=== PATIENT | female | born 1955 | race Caucasian/White ===

== ENCOUNTER → 2016-07-05 | Outpatient (CLI) | payer MEDICAID ==
[2016-07-05 11:54] LABS: Basophils % (A) 0 %; CH 28.5; CHCM 33.7; Eosinophils # (A) 0.1 k/uL (0-0.7); Eosinophils % (A) 2 %; HCT 36.9 % (34.0-46.0); HDW 2.92; HGB 12.4 gm/dL (11.4-16.0); Luc # (Auto) 0.17; Luc % (Auto) 3; Lymphocytes # (A) 1.7 k/uL (1.0-4.8); Lymphocytes % (A) 31 %; MCH 28.7 pg (25.0-35.0); MCHC 33.7 g/dL (31.0-37.0); MCV 85.2 fL (80.0-100.0); Mean Platelet Volume 8.1; Monocytes # (A) 0.3 k/uL (0-1.0); Monocytes % (A) 6 %; Neutrophils # (A) 3.1 k/uL (1.3-7.7); Neutrophils % (A) 58 %; RBC 4.33 m/uL (3.80-5.40); RDW 13.9 % (11.5-15.5); WBC 5.3 k/uL (3.8-10.6); WBC (Perox) 5.75
[2016-07-05 12:02] LABS: ALT 40 U/L (9-52); AST 27 U/L (14-36); Alkaline Phosphatase 75 U/L (38-126); Anion Gap 11 mmol/L; Blood Urea Nitrogen 25 mg/dL (7-17); Calcium 9.6 mg/dL (8.4-10.2); Carbon Dioxide 27 mmol/L (22-30); Chloride 106 mmol/L (98-107); Glucose 116 mg/dL (74-99); Non-African American GFR(MDRD) 56 (>60 ml/min/1.73 sqM); Potassium 4.8 mmol/L (3.5-5.1); Sodium 144 mmol/L (137-145); Total Bilirubin 0.4 mg/dL (0.2-1.3); Total Protein 6.8 g/dL (6.3-8.2)
[2016-07-05 12:12] LABS: Appearance,Urine Clear (Clear); Bilirubin,Urine Negative (Negative); Glucose,Urine (UA) Negative (Negative); Ketones,Urine Negative (Negative); Leukocyte Esterase,Urine Moderate (Negative); Mucus,Urine Rare /hpf; Nitrite,Urine Negative (Negative); Particle Count 1527; Protein,Urine Negative (Negative); Specific Gravity,Urine 1.014 (1.001-1.035); Squamous Epithelial Cell,Urine <1 /hpf (0-4); UA Billing (MACRO vs. MICRO) MICRO; Urobilinogen,Urine <2.0 mg/dL (<2.0); WBC,Urine 5 /hpf (0-5)
[2016-07-05 12:13] LABS: INR 0.9 (<1.1); Partial Thromboplastin Time 22.4 sec (22.0-30.0); Prothrombin Time 9.7 sec (9.0-12.0)
== END | disposition home or self-care (01) ==
LOC: LABPAT 11:15
PROVIDERS: ATTEND Orthopaedic Surgery Sports Medicine
DX: Z01.812 Encounter for preprocedural laboratory examination (principal)
CPT/HCPCS: 80053; 81001; 85025; 85610; 85730; 87070

== ENCOUNTER 2016-07-22 09:07 | Inpatient (IN) | payer MEDICAID ==
[2016-07-12 15:50] VITALS: BMI 30.6
[~2016-07-22 09:07] MED LIST: ACETAMINOPHEN TAB 500 MG TAB PO ONE; CLINDAMYCIN 900 MG in DEXTROSE 5% IN WATER 50 ML IVPB ONE; DEXAMETHASONE SOD PHOSPHATE 10 MG/ML 1 ML VIAL IV ONE; HYDROmorphone 1 MG/ML 1 ML SYRINGE IVP PRN; MELOXICAM 7.5 MG TAB PO ONE; MIDAZOLAM 2 MG/2 ML VIAL IV PRN; ONDANSETRON 4 MG/2 ML VIAL IVP ONE; TRANEXAMIC ACID 1,000 MG in SODIUM CHLORIDE 0.9% 100 ML IVPB ONE
[2016-07-22] MEDS: LACTATED RINGERS 1,000 ML IV SCH ×3 (10:13→15:31)
[2016-07-22] MEDS: VANCOMYCIN 1,000 MG in SODIUM CHLORIDE 0.9% 250 ML IVPB STA ×2 (10:34→11:26)
[2016-07-22] MEDS ORDERED: LIDOCAINE 1% INJ 10MG/ML (20 ML MDV) ONE (11:27)
[2016-07-22] MEDS ORDERED: PHENYLEPHRINE-0.9% NACL SYG 1 MG/10 ML SYRINGE ONE (11:27)
[2016-07-22] MEDS ORDERED: MORPHINE SULFATE (PF) 0.3 MG/0.3 ML SYR ONE (11:27)
[2016-07-22] MEDS ORDERED: ONDANSETRON 4 MG/2 ML VIAL ONE (11:27)
[2016-07-22] MEDS ORDERED: SODIUM CHLORIDE 0.9% 100 ML BAG ONE (11:27)
[2016-07-22] MEDS ORDERED: MIDAZOLAM 2 MG/2 ML VIAL ONE (11:27)
[2016-07-22] MEDS ORDERED: PROPOFOL 10 MG/ML 20 ML VIAL IV ONE (11:27)
[2016-07-22] MEDS ORDERED: TRANEXAMIC ACID 1,000 MG/10 ML VIAL ONE (11:27)
[2016-07-22] MEDS: ROPIVACAINE 246.25 MG, EPINEPHrine 0.5 MG, KETOROLAC 30 MG, cloNIDine HCL/PF 80 MCG, WA... MISCELLANE ONE ×10 (12:07→12:40)
[2016-07-22] MEDS ORDERED: DIAZEPAM 5 MG TAB PO PRN (13:21)
[2016-07-22] MEDS ORDERED: MAGNESIUM HYDROXIDE 2,400 MG/10 ML CUP PO PRN (13:21)
[2016-07-22] MEDS ORDERED: TEMAZEPAM 15 MG CAP PO PRN (13:21)
[2016-07-22] MEDS ORDERED: BISACODYL 10 MG SUPP RECTAL PRN (13:21)
[2016-07-22] MEDS ORDERED: HYDROmorphone 1 MG/ML 1 ML SYRINGE IVP PRN ×3 (13:21)
[2016-07-22] MEDS ORDERED: NALOXONE 0.4 MG/ML 1 ML VIAL IV PRN ×2 (13:21→14:09)
[2016-07-22] MEDS ORDERED: traMADol 50 MG TAB PO PRN (13:21)
[2016-07-22] MEDS ORDERED: HYDROcodone/APAP 7.5-325MG 1 EACH TAB PO PRN (13:21)
[2016-07-22] MEDS ORDERED: ACETAMINOPHEN TAB 325 MG TAB PO PRN (13:21)
[2016-07-22] MEDS ORDERED: ONDANSETRON 4 MG/2 ML VIAL IVP PRN (13:21)
[2016-07-22] MEDS ORDERED: hydrOXYzine PAMOATE 25 MG CAP PO PRN (13:21)
[2016-07-22] MEDS ORDERED: NA PHOS,M-B/NA PHOS,DI-BA 133 ML ENEMA RECTAL PRN (13:21)
--- NOTE | 2016-07-22 13:57 | XR ---
EXAMINATION TYPE: XR knee limited RT DATE OF EXAM: 07/22/2016 1:48 PM COMPARISON: NONE HISTORY: Post knee replacement TECHNIQUE: 2 views right knee FINDINGS: Right knee prosthesis is present with tibial femoral components. No acute fractures are ziggy dent. Postsurgical changes are evident. IMPRESSION: 1. No acute fractures post knee replacement.
[2016-07-22] MEDS ORDERED: diphenhydrAMINE 50 MG/ML 1 ML VIAL IVP PRN (14:09)
[2016-07-22] MEDS ORDERED: PROMETHAZINE INJ 6.25 MG in SODIUM CHLORIDE 0.9% 50 ML IVPB PRN (14:09)
[2016-07-22] MEDS ORDERED: MORPHINE SULFATE 4 MG/ML SYRINGE IVP PRN ×2 (14:09→19:52)
[2016-07-22] MEDS: NALBUPHINE 10 MG/ML AMPUL IV PRN ×2 (15:29→21:06)
[2016-07-22] MEDS ORDERED: SENNOSIDES-DOCUSATE SODIUM 1 EACH TAB PO SCH (21:00)
[2016-07-22] MEDS ORDERED: MONTELUKAST 10 MG TAB PO SCH (21:00)
[2016-07-22] MEDS: ASPIRIN 325 MG TAB PO SCH (21:09)
--- NOTE | 2016-07-22 22:15 | OP ---
DATE OF SERVICE: 07/22/2016 SURGEON: BRANDI OROZCO MD CAR PRE COOLER: Dany Dennis PA-C. PREOPERATIVE DIAGNOSIS: Right knee osteoarthrosis. POSTOPERATIVE DIAGNOSIS: Right knee osteoarthrosis. OPERATION: Right total knee arthroplasty. ANESTHESIA: Spinal with sedation. ESTIMATED BLOOD LOSS: 100 mL. SPECIMENS REMOVED: COMPLICATIONS: None apparent. OPERATIVE FINDINGS: TOURNIQUET TIME: 46 minutes at 250 mmHg. DRAINS: None. DISPOSITION: Postanesthesia care unit. INDICATIONS: Ambreen is a very pleasant 61-year-old female, has a long-standing history of right knee pain. History and physical examination are consistent with advanced right knee osteoarthrosis. She has been through significant nonoperative management up to this point. Further treatment options were discussed and she has decided to go forward with a right total knee arthroplasty. Risks of the procedure were discussed with her in detail. These risks include, but were not limited to risk of infection, nerve damage, bleeding, pain. There is a small risk of deep venous thrombosis which could lead to fatal pulmonary embolism. There is also risk of loosening of the implant which could require revision operation. The patient understands these risks. All of her questions were answered to her satisfaction. An appropriate informed consent was obtained. DESCRIPTION OF PROCEDURE: The patient was identified in the preoperative holding area. Surgical site was marked by both the patient and myself. She was given 1 g of vancomycin IV for prophylactic purposes. She was then transferred to the operative suite, where she was placed supine on the operating table. A spinal anesthetic was then administered and dosed by the anesthesia department without apparent complication. An examination under anesthesia was then performed. The patient was just 2 to 3 degrees shy of full extension. She had 100 degrees of flexion and the medial collateral ligament, lateral collateral ligament, and posterior cruciate ligaments were stable. Tourniquet was then placed high on the right upper thigh, well-padded in preparation for surgery. The patient's right lower extremity was then prepped and draped in the usual sterile fashion. A standard surgical pause was then undertaken to ensure that we were operating on the correct site and that appropriate preoperative antibiotics had been given. All staff in the room were in agreement and we proceeded. The outlines of the patella were then marked with a surgical pen. A planned 10 to 12 cm vertical incision centered over the patella was marked with a surgical pen. The leg was then exsanguinated with an Esmarch dressing. The knee was then flexed and the tourniquet was inflated to 250 mmHg. The total tourniquet time for the procedure was 46 minutes. Incision was then made with a 10 blade scalpel. Dissection was carried down sharply to the overlying fascia. Great care was taken to minimize the skin flaps. The knee was then exposed using a standard medial parapatellar approach. A small cuff of quadriceps tendon was then left for suturing. She was in a bit of varus preoperatively. A standard medial release was then made. The superficial medial collateral ligament was dissected off the bone around to the posterior aspect of the proximal tibia. The medial meniscus was then excised as well. The lateral meniscus was also released anteriorly. The leg was then externally rotated. The patella was everted and the knee was flexed. The retractors were then placed to protect the collateral ligaments. I then proceeded to remove the infrapatellar fat pad. This was excised sharply tangentially with the fibers of the patellar tendon. I then proceeded to remove the peripheral osteophytes. This was done with a rongeur. I then proceeded with the distal femoral resection. She did have near full extension. A planned 9 mm resection was then done. The femoral canal was then entered in the midline of the femur approximately 10 mm anterior to the origin of the posterior cruciate ligament. The shiv was then advanced down the center of the femur and placed intramedullary. Based on preoperative radiographs, the angle between the anatomic and mechanical axis of the femur was approximately 4 to 5 degrees. The valgus angle of the distal femoral cutting guide was then set at 4 degrees for the right knee. The distal femoral cutting guide was then advanced over the intramedullary shiv. This was seated firmly against the femur. I then, as mentioned, planned to take 9 mm off the distal femur. The cutting block was then secured onto the femur with pins. The jig was then removed and the distal femoral cut was made through the slot of the block. The pins were then removed and the distal femoral cutting block was removed. The accuracy of the distal femoral cuts was checked with 2 flat bars. I then proceeded with femoral sizing. Posterior referencing sizing guide was held firmly against the resected distal surface of the femur. Posterior condyles were resting on the posterior plane of the guide. The sizing stylus was then placed onto the anterior femur. The size was measured at a size 6. I then assessed for femoral rotation. The plan was for 3 degrees of external rotation. Three degrees of external rotation was placed onto the jig. The holes were then marked. I then confirmed the rotation by 3 separate methods. This was done using the epicondylar axis as well as Whitesides line and posterior referencing. It was deemed that the external rotation was proper. I then went forward with placing the femoral cutting block. This was then placed over the previously placed pinholes. The nikhil wing was then placed onto the anterior slots to ensure that we would not notch the anterior femur with the anterior femoral cut. I then proceeded with the anterior femoral cut. This was flush with the anterior cortex of femur. Posterior cuts were then made followed by the anterior chamfer cut and then the posterior chamfer cut. The cutting block was then removed. Throughout the resection, the collateral ligaments were protected with retractors. I then placed a trial size 6 femur. It was slightly wide medial to lateral and fit flush with the distal end of the femur. I made a decision to go with a 6 narrow. The drill holes were then made. I then proceeded with the tibial cut. I planned for a cruciate-retaining knee. The guide was then placed and set for varus, valgus and for slope. The height was set for an approximate 2 mm resection from the medial tibial plateau, which was the lower side. I was happy with the alignment and the amount of resection. The cutting block was then pinned to the proximal tibia. The alignment shiv was removed and the proximal tibia was resected with the reciprocating saw. Again, this was done with retractors, protecting the collateral ligaments as well as posterior cruciate ligament. I then proceeded to evaluate the flexion and extension gaps. A 10 mm block was then placed. The flexion-extension gaps were equal. I then proceeded with resection of the posterior osteophytes. She had very minimal posterior osteophytes. This was done using a curved osteotome. This resected the posterior osteophytes and the posterior capsule stripping was also done off the posterior aspect of the femur. The osteophytes were removed. I then proceeded with resection of the patella. The thickness of the patella was measured using the caliper. The thickness was 22 mm. The thickness of the anticipated patellar dome was taken into account. Resection was then performed and confirmed to be equal in 4 quadrants using a caliper. Approximately 14 mm of bone remained after the resection. A 29 x 8 standard patellar trial was then placed. The holes were then drilled and the trial was then placed. I then proceeded with sizing the tibial plate. A size D tibial plate fit very nicely. I placed a trial femur, tibial tray and patellar button. A 10 mm trial tibial insert was also placed. The components fit very nicely. She had full extension and flexion. The extension and flexion gaps were equal and stable to both varus and valgus stress. The patella tracked appropriately. The tibial tray rotation was marked with a Bovie. This was externally rotated properly. I then proceeded with tibial preparation. I first drilled the femoral holes and removed femoral component. The tibial tray was then set for proper external rotation as well as mediolateral placement onto the tibia. It was then pinned into place. I then proceeded with punching the keel. I then decided to proceed with cementing of all of our components. The knee was thoroughly irrigated with sterile saline solution via pulse lavage. The lateral genicular artery was identified and cauterized. All blood was removed from the bone of the tibia, femur and patella with pulse lavage. I then proceed with cementing. Two packs of antibiotic bone cement were prepared on the back table by the certified ophthalmic surgical assistant. I then proceeded with cementing of the tibia first. The cement was impacted in the keel as well as deeply seated into the bone. A second coat of cement was then placed. The tibia was then impacted into place. Excess cement was removed with Cushings and jokers. I then proceeded with cementing of the femoral component. The femoral component was also cemented using standard technique. Excess cement was removed. A 10 mm trial insert was then placed into the knee. It was brought into full extension with a constant axial load placed until the cement had hardened. The patellar component was then cemented. This was held firmly with a compressive device until the cement had dried. When the cement had dried, the knee was taken out of extension. All excess cement was removed from around the prosthesis. I then trialed the knee with a 10 mm insert. Flexion-extension gaps were appropriate. The knee was stable. It came into full extension. I decided to go forward with a 10 mm cross-linked cruciate-retaining tibial insert. Polyethylene was then placed onto the tray and locked. The knee was then reduced. The knee was then again further irrigated with sterile saline solution with antibiotic added. The tourniquet was then deflated. Total tourniquet time for the procedure was 46 minutes at 250 mmHg. Final components were Abby Persona size 6 narrow cruciate-retaining femoral component, a size D tibial tray, a 10 mm medial congruent cruciate-retaining polyethylene insert and a 29 x 8 patella. I then proceeded with closure. Again, the knee was thoroughly irrigated. The quadriceps tendon and the medial retinaculum were re-approximated with #2 Ethibond suture. The extensor mechanism was then closed with a running #2 Quill suture. Subcutaneous tissues were closed with 2-0 Vicryl interrupted suture. The skin was closed with a running 3-0 Quill suture. Dermabond was applied to the incision. Sterile compressive dressings were then applied. All sponge and needle counts were deemed correct prior to closure. The patient tolerated the procedure without apparent complication. She was transferred to the recovery room in stable condition.
[2016-07-22 22:56] VITALS: RESP 16
[2016-07-22] MEDS ORDERED: VANCOMYCIN 1,250 MG in SODIUM CHLORIDE 0.9% 250 ML IVPB ONE (23:00)
[2016-07-23] MEDS ORDERED: NALBUPHINE 10 MG/ML AMPUL ONE (02:30)
[2016-07-23] MEDS ORDERED: MORPHINE SULFATE 4 MG/ML SYRINGE ONE (02:30)
[2016-07-23] MEDS: LACTATED RINGERS 1,000 ML IV SCH ×2 (05:17→06:05)
[2016-07-23 07:13] LABS: Basophils % (A) 0 %; CH 28.5; CHCM 33.6; Eosinophils % (A) 0 %; HCT 33.4 % (34.0-46.0); HDW 2.91; HGB 11.2 gm/dL (11.4-16.0); Luc # (Auto) 0.12; Luc % (Auto) 1; Lymphocytes # (A) 1.5 k/uL (1.0-4.8); Lymphocytes % (A) 13 %; MCH 28.6 pg (25.0-35.0); MCHC 33.6 g/dL (31.0-37.0); MCV 85.1 fL (80.0-100.0); Mean Platelet Volume 6.9; Monocytes # (A) 0.5 k/uL (0-1.0); Monocytes % (A) 4 %; Neutrophils # (A) 9.1 k/uL (1.3-7.7); Neutrophils % (A) 81 %; RBC 3.93 m/uL (3.80-5.40); RDW 13.9 % (11.5-15.5); WBC 11.2 k/uL (3.8-10.6); WBC (Perox) 11.81
[2016-07-23 07:24] LABS: ALT 37 U/L (9-52); AST 29 U/L (14-36); Alkaline Phosphatase 71 U/L (38-126); Anion Gap 9 mmol/L; Blood Urea Nitrogen 17 mg/dL (7-17); Calcium 9.2 mg/dL (8.4-10.2); Carbon Dioxide 26 mmol/L (22-30); Chloride 103 mmol/L (98-107); Glucose 104 mg/dL (74-99); Non-African American GFR(MDRD) >60 (>60 ml/min/1.73 sqM); Potassium 5.2 mmol/L (3.5-5.1); Sodium 138 mmol/L (137-145); Total Bilirubin 0.5 mg/dL (0.2-1.3); Total Protein 6.3 g/dL (6.3-8.2)
[2016-07-23] MEDS ORDERED: SYMBICORT 160-4.5 MCG INHALER INHALATION SCH (08:00)
[2016-07-23] MEDS: HYDROcodone/APAP 7.5-325MG 1 EACH TAB PO PRN ×2 (08:16→14:03)
[2016-07-23] MEDS ORDERED: ESCITALOPRAM 20 MG TAB PO SCH (09:00)
--- NOTE | 2016-07-23 09:47 | P.CONS ---
History of Present Illness - Reason for Consult Consult date: 07/23/16 Medical management Requesting physician: Diego Malik - Chief Complaint Status post right total knee arthroplasty - History of Present Illness This is a 61-year-old female, patient of Dr. Burgos. 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 Surgery was completed in 1990. She's had no further seizures since that time. Patient is been suffering with right knee pain and osteoarthritis of the right knee. She underwent a right total knee arthroplasty yesterday with Dr. Malik. Patient tolerated surgery well with no complications. She had an estimated blood loss 100 MLS. We have been consulted for medical management. Patient denies any chest pain, shortness of breath, nausea or vomiting. Denies any bowel movement changes or urinary symptoms. She has been up and ambulating to the bathroom. Pain is tolerable. She was found have a potassium of 5.2. She's been eating more bananas lately at home. She did eat a banana this morning with breakfast. We' ll repeat a potassium level. If elevated patient will require Kayexalate. Review of Systems Please refer to HPI otherwise unremarkable Past Medical History Past Medical History: Asthma, Hypertension Additional Past Medical History / Comment(s): hx of seizure post brain sx for AVM, NO MRI'S HAS CLIPS IN BRAIN History of Any Multi-Drug Resistant Organisms: None Reported Past Surgical History: Section, Cholecystectomy, Orthopedic Surgery, Tubal Ligation Additional Past Surgical History / Comment(s): RT KNEE MENISCUS TEAR, BRAIN SX FOR AVM AT [facility] 20 YRS AGO Past Anesthesia/Blood Transfusion Reactions: Postoperative Nausea & Vomiting ( PONV) Past Psychological History: Depression, Panic Disorder Smoking Status: Never smoker Past Alcohol Use History: None Reported Past Drug Use History: None Reported - Past Family History Mother Family Medical History: Cancer Additional Family Medical History / Comment(s): THROAT Father Family Medical History: Cancer Additional Family Medical History / Comment(s): LUNG, PANCREAS Medications and Allergies Home Medications Medication Instructions Recorded Confirmed Type Cholecalciferol [Vitamin D3] 1,000 unit PO DAILY 07/12/16 07/22/16 History Escitalopram [Lexapro] 20 mg PO DAILY 07/12/16 07/22/16 History Glucosamine Sulfate 500 mg PO DAILY 07/12/16 07/22/16 History Losartan [Cozaar] 50 mg PO QAM 07/12/16 07/22/16 History Meloxicam [Mobic] 7.5 mg PO DAILY 07/12/16 07/22/16 History Montelukast [Singulair] 10 mg PO HS 07/12/16 07/22/16 History Vitamin B-12 1 tab PO DAILY 07/12/16 07/22/16 History Budesonide/Formoterol Fumarate 2 puff INHALATION RT-DAILY 07/22/16 07/22/16 History [Symbicort 160-4.5 Mcg Inhaler] Allergies Allergy/AdvReac Type Severity Reaction Status Date / Time latex Allergy Reddness Verified 07/22/16 09:40 Penicillins Allergy Dyspnea/figueroa Verified 07/22/16 09:40 h Physical Exam Vitals: Vital Signs Temp Pulse Resp BP Pulse Ox 07/23/16 03:00 96 07/23/16 01:53 97.7 F 71 16 123/59 96 07/22/16 23:00 96 07/22/16 21:00 98.6 F 88 16 112/69 94 L 07/22/16 16:30 93 133/76 07/22/16 16:15 73 120/69 07/22/16 16:00 84 123/66 07/22/16 15:45 84 128/70 07/22/16 15:30 85 118/72 07/22/16 15:15 81 122/70 07/22/16 15:00 80 133/72 07/22/16 14:45 85 114/70 07/22/16 14:30 98.1 F 80 17 120/95 99 07/22/16 14:00 75 16 103/55 97 07/22/16 13:45 78 16 114/58 98 07/22/16 13:30 81 16 103/51 94 L 07/22/16 13:20 97.8 F 82 16 113/58 98 07/22/16 09:41 97.9 F 79 16 140/65 96 Intake and Output 07/22/16 07/23/16 07/23/16 22:59 06:59 14:59 Intake Total 860 1200 Output Total 1350 Balance 860 -150 Intake: IV 1200 Lactated Ringers 1,000 ml 1200 @ 100 mls/hr IV .Q10H PAUL Rx#:[id number] Oral 860 Output: Urine 1350 Uretheral (Rendon) 1350 Other: Voiding Method Indwelling Catheter Head normocephalic Neck supple Lungs clear to auscultation bilaterally no wheezing or crackles Heart regular rate and rhythm S1-S2, no rub or gallop Abdomen is soft nontender nondistended positive bowel sounds no hepatosplenomegaly Extremities no edema. Right knee incision clean dry and intact. No evidence of cellulitis. Calf nontender. Neuro alert and orientated to 3 Results CBC & Chem 7: 07/23/16 06:56 07/23/16 06:56 Labs: Abnormal Lab Results - Last 24 Hours (Table) 07/23/16 07/23/16 Range/Units 06:56 06:56 WBC 11.2 H (3.8-10.6) k/uL Hgb 11.2 L (11.4-16.0) gm/dL Hct 33.4 L (34.0-46.0) % Neutrophils # 9.1 H (1.3-7.7) k/uL Potassium 5.2 H (3.5-5.1) mmol/L Glucose 104 H (74-99) mg/dL Assessment and Plan Plan: 1. Right knee osteoarthritis: Postop day #1 status post right total knee arthroplasty. Continue with current pain control. Patient is on full aspirin twice a day for DVT prophylaxis. 2. Hyperkalemia: Repeat potassium level. If remains elevated will give Kayexalate. 3. Leukocytosis: White count 11.2. Likely reactive from surgery. No evidence of cellulitis at the knee. 4. Essential hypertension: Blood pressures are stable. Cozaar initially held due to lower blood pressures. Okay to resume Cozaar 5. History of asthma: Stable with no evidence of exacerbation. Continue with her Symbicort and Singulair 6. History of generalized anxiety disorder and panic disorder with depression. Continue Lexapro GI prophylaxis Pepcid Thank you for this consultation. We will continue to follow along with you. Time with Patient: Greater than 30 (Greater than 50% of the total time spent in counseling and coordination of care. I performed an examination of the patient and discussed their management with the physician Cafeteria Associate. I have reviewed the Physician Cafeteria Associate's notes and agree with the documented findings and plan of care)
[2016-07-23 09:48] VITALS: BP 116/59; PULSE 63; TEMP 98.4
[2016-07-23] MEDS ORDERED: FAMOTIDINE 20 MG TAB PO SCH (10:00)
--- NOTE | 2016-07-23 10:19 | P.PN ---
Progress Note - Text Date:07/23] Time:700 Patient is status post tkr. Patient seen this morning with VAS score of 4. c/o of pruritus, no c/o nausea/vomiting, comfortable and doing well.
--- NOTE | 2016-07-23 11:12 | P.DS ---
Providers Date of admission: 07/22/16 09:07 Expected date of discharge: 07/23/16 Attending physician: Diego Malik Consults: 07/22/16 13:21 Consult Physician Routine Consulting Provider: Petra Burgos Consult Reason/Comments: post op medical management Do you want consulting provider notified?: Yes Primary care physician: Petra Burgos - Discharge Diagnosis(es) (1) Osteoarthritis of right knee Patient was admitted to the OR on 07/22/2016 to undergo right total knee arthroplasty per Dr. Malik. She failed conservative measures as an outpatient and desired elected to proceed with surgical intervention after given informed consent. She underwent the above procedure which she tolerated well without complication. Her postoperative hospital course has remained without complication. On day of discharge diet desires discharge to home. She is afebrile, vital signs stable, labs within acceptable ranges, denying new complaints, tolerating by mouth meds and diet, pain controlled, voiding without difficulty, passing flatus, wound is benign, calf is soft and nontender, abdomen is soft and nontender, and neurovascular status is intact. Review of systems is negative for fever, chills, chest pain, shortness breath, nausea, vomiting, numbness, tingling, abdominal pain, calf pain, headaches, slurred speech or other. Current Visit: Yes Status: Acute Priority: Medium Procedures: Right total knee arthroplasty Patient Condition at Discharge: Good Plan - Discharge Summary New Discharge Prescriptions: Aspirin 325 mg PO BID #60 tab HYDROcodone/APAP 7.5-325MG [[place] 7.5-325] 1 - 2 each PO Q6HR PRN #90 tab PRN Reason: Pain Discharge Medication List Cholecalciferol [Vitamin D3] 1,000 unit PO DAILY 07/12/16 [History] Escitalopram [Lexapro] 20 mg PO DAILY 07/12/16 [History] Glucosamine Sulfate 500 mg PO DAILY 07/12/16 [History] Losartan [Cozaar] 50 mg PO QAM 07/12/16 [History] Meloxicam [Mobic] 7.5 mg PO DAILY 07/12/16 [History] Montelukast [Singulair] 10 mg PO HS 07/12/16 [History] Vitamin B-12 1 tab PO DAILY 07/12/16 [History] Budesonide/Formoterol Fumarate [Symbicort 160-4.5 Mcg Inhaler] 2 puff INHALATION RT-DAILY 07/22/16 [History] Aspirin 325 mg PO BID #60 tab 07/23/16 [Rx] HYDROcodone/APAP 7.5-325MG [[place] 7.5-325] 1 - 2 each PO Q6HR PRN #90 tab [Rx] Follow up Appointment(s)/Referral(s): Diego Malik MD [STAFF PHYSICIAN] - 2 Weeks Activity/Diet/Wound Care/Special Instructions: Keep wound clean and dry Take meds as directed Follow-up with Dr. Malik in office [phone] Weightbearing as tolerated Discharge Disposition: HOME WITH HOME HEALTH SERVICES
[2016-07-23] MEDS ORDERED: MULTIVITAMINS, THERA 1 EACH TAB PO SCH (12:00)
[2016-07-23] MEDS ORDERED: CHOLECALCIFEROL 1,000 UNIT TAB PO SCH (12:00)
[2016-07-23] MEDS: ASPIRIN 325 MG TAB PO SCH (12:16)
[2016-07-24] MEDS ORDERED: LOSARTAN 50 MG TAB PO SCH (09:00)
== END 2016-07-23 14:17 | disposition home health service (06) | DRG 470 ==
LOC: 2ORMAIN 09:07 → 3SUR 13:14
PROVIDERS: ADMIT Orthopaedic Surgery Sports Medicine; ATTEND Orthopaedic Surgery Sports Medicine
PROC: 0SRC0J9 Replacement of Right Knee Joint with Synthetic Substitute, Cemented, Open Approach (ICD-10-PCS; principal; 2016-07-22 11:00)
DX: M17.11 Unilateral primary osteoarthritis, right knee (principal); I10 Essential (primary) hypertension; F41.0 Panic disorder [episodic paroxysmal anxiety]; J45.909 Unspecified asthma, uncomplicated; Z88.0 Allergy status to penicillin; Z79.899 Other long term (current) drug therapy; Z91.040 Latex allergy status
CPT/HCPCS: 80053; 84132; 85025; 88300; 94640

== ENCOUNTER → 2018-10-21 | Outpatient (CLI) | payer MEDICARE, OTHER | END | disposition home or self-care (01) | LOC: LABPAT 09:11 | PROVIDERS: ATTEND Orthopaedic Surgery Sports Medicine | DX: Z01.812 Encounter for preprocedural laboratory examination (principal) | CPT/HCPCS: 87070 ==

== ENCOUNTER 2018-10-25 10:27 | Day surgery (SDC) | payer MEDICARE, OTHER ==
[~2018-10-25 10:27] MED LIST changes: -DEXAMETHASONE SOD PHOSPHATE 10 MG/ML 1 ML VIAL IV ONE; -HYDROmorphone 1 MG/ML 1 ML SYRINGE IVP PRN; +LIDOCAINE 1% 20 ML VIAL (10MG/ML) FOR IV START INTRADERMA PRN; +ROPIVACAINE 246.25 MG, EPINEPHrine 0.5 MG, KETOROLAC 30 MG, cloNIDine HCL/PF 80 MCG, WA... MISCELLANE ONE; +VANCOMYCIN 1,250 MG in SODIUM CHLORIDE 0.9% 250 ML IVPB ONE; +VANCOMYCIN IV PER PHARMACY 1 EACH MISC MISCELLANE PRN; +fentaNYL (PF) 50 MCG/ML 2 ML AMP IV PRN; +fentaNYL (PF) 50 MCG/ML 2 ML AMP IVP PRN
[2018-10-25] MEDS ORDERED: LACTATED RINGERS 1,000 ML IV ONE ×3 (11:01→14:20)
[2018-10-25] MEDS ORDERED: DEXAMETHASONE SOD PHOS (MDV) 100 MG/10 ML VIAL IVP ONE (11:02)
[2018-10-25] MEDS ORDERED: MORPHINE SULFATE 2 MG/ML SYRINGE IVP PRN (11:22)
[2018-10-25] MEDS ORDERED: NALOXONE 0.4 MG/ML 1 ML VIAL IV PRN ×2 (11:22→12:47)
[2018-10-25] MEDS ORDERED: SODIUM CHLORIDE 0.9% 100 ML BAG ONE (12:36)
[2018-10-25] MEDS ORDERED: MIDAZOLAM 2 MG/2 ML VIAL ONE (12:36)
[2018-10-25] MEDS ORDERED: MORPHINE SULFATE (PF) 0.3 MG/0.3 ML SYR ONE (12:36)
[2018-10-25] MEDS ORDERED: TRANEXAMIC ACID 1,000 MG/10 ML VIAL ONE (12:36)
[2018-10-25] MEDS ORDERED: fentaNYL (PF) 50 MCG/ML 2 ML AMP ONE (12:36)
[2018-10-25] MEDS ORDERED: diphenhydrAMINE 50 MG/ML 1 ML VIAL ONE (12:36)
[2018-10-25] MEDS ORDERED: ePHEDrine SULFATE/0.9% NACL/PF 50 MG/5 ML SYRINGE IV ONE (12:36)
[2018-10-25] MEDS ORDERED: ceFAZolin 3,000 MG in SODIUM CHLORIDE 0.9% IRRIGATIO 3,000 ML IRRIGATION ONE (12:38)
[2018-10-25] MEDS ORDERED: HYDROcodone/APAP 10-325MG 1 EACH TAB PO PRN (12:47)
[2018-10-25] MEDS ORDERED: ONDANSETRON 4 MG/2 ML VIAL IVP PRN (12:47)
[2018-10-25] MEDS ORDERED: DIAZEPAM 5 MG TAB PO PRN (12:47)
[2018-10-25] MEDS ORDERED: NA PHOS,M-B/NA PHOS,DI-BA 133 ML ENEMA RECTAL PRN (12:47)
[2018-10-25] MEDS ORDERED: HYDROcodone/APAP 5-325MG 1 EACH TAB PO PRN (12:47)
[2018-10-25] MEDS ORDERED: TEMAZEPAM 15 MG CAP PO PRN (12:47)
[2018-10-25] MEDS ORDERED: BISACODYL 10 MG SUPP RECTAL PRN (12:47)
[2018-10-25] MEDS ORDERED: HYDROmorphone 0.5 MG/0.5 ML SYRINGE IVP PRN ×3 (12:47)
[2018-10-25] MEDS ORDERED: MAGNESIUM HYDROXIDE 2,400 MG/10 ML CUP PO PRN (12:47)
[2018-10-25] MEDS ORDERED: traMADol 50 MG TAB PO PRN (12:47)
[2018-10-25] MEDS ORDERED: NALBUPHINE 10 MG/ML (1 ML AMP) IV ONE (15:06)
--- NOTE | 2018-10-25 15:20 | XR ---
EXAMINATION TYPE: XR knee limited LT DATE OF EXAM: 10/25/2018 CLINICAL HISTORY: Postoperative evaluation Two views of the left knee are submitted. Identified are changes of total knee arthroplasty with fem oral and tibial components appearing well seated. Postsurgical soft tissue changes are noted. Align ment is anatomic.
[2018-10-25 17:25] VITALS: BMI 32.4
[2018-10-25] MEDS: LACTATED RINGERS 1,000 ML IV SCH (19:32)
[2018-10-25] MEDS: ASPIRIN 325 MG TAB PO SCH (20:26)
[2018-10-25] MEDS ORDERED: SENNOSIDES-DOCUSATE SODIUM 1 EACH TAB PO SCH (21:00)
[2018-10-25] MEDS ORDERED: ESCITALOPRAM 20 MG TAB PO SCH (22:00)
[2018-10-25] MEDS ORDERED: MONTELUKAST 10 MG TAB PO SCH (22:00)
[2018-10-25] MEDS ORDERED: TRIAMCINOLONE 0.1% CREAM 80 GM TUBE TOPICAL SCH (22:00)
--- NOTE | 2018-10-25 22:50 | P.CONS ---
History of Present Illness - Reason for Consult Consult date: 10/25/18 Medical management requested by Dr. Malik - Chief Complaint Left knee surgery - History of Present Illness Consultation: This is a very pleasant 63-year-old patient of Dr. Wilde. Chronic stable medical conditions include intermittent asthma, fibromyalgia, hypertension, osteoarthritis, anxiety. Patient has undergone left total knee arthroplasty. Some pain is present. HE HAD SOME NAUSEA WITH SUPPER. NO CHEST PAIN OR SHORTNESS OF BREATH. DENIES ANY CARDIAC HISTORY. NO FEVER NO CHILLS. Review of systems: GEN.: None EYES: None HEENT: None NECK: None RESPIRATORY: None CARDIOVASCULAR: None GASTROINTESTINAL: Nausea GENITOURINARY: None MUSCULOSKELETAL: Pain in different joints LYMPHATICS: None HEMATOLOGICAL: None PSYCHIATRY: Anxiety NEUROLOGICAL: None Past medical history: Asthma, fibromyalgia, hypertension, osteoarthritis, seizure disorder, following brain surgery for AV malformation. No seizures since 1998. Some bladder incontinence, eczema Social history: Does not smoke or drink alcohol. . Family history: Throat cancer Physical examination: VITAL SIGNS: 97.7, 74, 18, 94/56, 93% on 2 L GENERAL: BMI 32.9, sitting up in bed. EYES: Pupils equal. Conjunctiva normal. HEENT: External appearance of nose and ears normal, oral cavity grossly normal. NECK: JVD not raised; masses not palpable. HEART: First and second heart sounds are normal; no edema. LUNGS: Respiratory rate normal; clear to auscultation. ABDOMEN: Soft, nontender, liver spleen not palpable, no masses palpable. PSYCH: Alert and oriented x3; mood and affect slightly anxiousl. NEUROLOGICAL: Cranial nerves grossly intact; no facial asymmetry, power and sensation grossly intact. LYMPHATICS: No lymph nodes palpable in the axilla and neck MUSCULOSKELETAL: Dressing over the left knee Labs: Potassium 5.3 Assessment: Left total knee arthroplasty -Intermittent asthma -Chronic fibromyalgia -Essential hypertension -Primary osteoarthritis -Chronic urinary stress incontinence Plan: Patient's blood pressures running of the lower side. Check patient hemoglobin the morning. Patient has got aspirin 325 twice a day ordered for DVT prophylaxis. Care was discussed with the patient. Questions were answered. Thank you Dr. Malik Past Medical History Past Medical History: Asthma, Fibromyalgia, Hypertension, Osteoarthritis (OA), Seizure Disorder, Skin Disorder Additional Past Medical History / Comment(s): Hx of Seizure Post Brain sx for AVM, NO MRI'S HAS CLIPS IN BRAIN; NO SEIZURE SINCE 1998 OR PRIOR. LEAKY VALVE, MINOR. BORDERLINE DM, WATCHES DIET. SL BLADDER LEAKAGE. ECZEMA. History of Any Multi-Drug Resistant Organisms: None Reported Past Surgical History: Section, Cholecystectomy, Orthopedic Surgery, Tubal Ligation Additional Past Surgical History / Comment(s): LT KNEE MENISCUS TEAR. BRAIN SX FOR AVM AT [facility] 1988. TOTAL RT KNEE. Past Anesthesia/Blood Transfusion Reactions: Postoperative Nausea & Vomiting (PONV) Additional Past Anesthesia/Blood Transfusion Reaction / Comm: HX FEVER AFTER SURGERY WITHIN 24 HOURS. Past Psychological History: Depression, Panic Disorder Smoking Status: Never smoker Past Alcohol Use History: None Reported Past Drug Use History: None Reported - Past Family History Mother Family Medical History: Cancer Additional Family Medical History / Comment(s): THROAT Father Family Medical History: Cancer Additional Family Medical History / Comment(s): LUNG, PANCREAS Medications and Allergies Home Medications Medication Instructions Recorded Confirmed Type Cholecalciferol [Vitamin D3 (25 1,000 unit PO DAILY 07/12/16 10/20/18 History Mcg = 1000 Iu)] Escitalopram [Lexapro] 20 mg PO HS 07/12/16 10/20/18 History Losartan [Cozaar] 100 mg PO QAM 07/12/16 10/20/18 History Montelukast [Singulair] 10 mg PO HS 07/12/16 10/20/18 History Acetaminophen [Tylenol Extra 1,000 mg PO Q8H PRN 10/20/18 10/20/18 History Strength] Albuterol Inhaler [Ventolin Hfa 1 - 2 puff INHALATION RT-Q6H PRN 10/20/18 10/20/18 History Inhaler] Meloxicam [Mobic] 15 mg PO DAILY 10/20/18 10/20/18 History Metoprolol Succinate (ER) [Toprol 25 mg PO DAILY 10/20/18 10/20/18 History Xl] Triamcinolone 0.1% Cream [Kenalog 1 applicatio TOPICAL BID 10/20/18 10/20/18 History 0.1% Cream] amLODIPine [Norvasc] 10 mg PO DAILY 10/20/18 10/20/18 History Allergies Allergy/AdvReac Type Severity Reaction Status Date / Time latex Allergy Reddness Verified 07/12/19 10:28 Penicillins Allergy Dyspnea/figueroa Verified 10/20/18 10:28 h adhesive tape AdvReac SKIN TURNS Verified 10/20/18 10:28 RED Physical Exam Vitals: Vital Signs Temp Pulse Pulse Resp BP Pulse Ox 10/25/18 21:56 18 10/25/18 20:10 95 10/25/18 20:00 18 10/25/18 19:10 97.7 F 74 18 94/56 93 L 10/25/18 18:00 15 10/25/18 17:30 78 127/101 10/25/18 17:15 75 96/64 10/25/18 17:00 82 94/58 10/25/18 16:45 68 114/68 10/25/18 16:30 70 94/61 10/25/18 16:17 95 10/25/18 16:10 78 15 10/25/18 16:00 81 17 103/67 10/25/18 15:45 90 98/63 10/25/18 15:30 98.2 F 85 15 98/62 93 L 10/25/18 15:15 78 12 123/65 94 L 10/25/18 15:00 75 12 122/58 93 L 10/25/18 14:45 80 12 110/53 97 10/25/18 14:34 98.5 F 85 12 113/53 96 10/25/18 10:46 97.8 F 63 18 137/65 98 Intake and Output 10/25/18 10/25/18 10/25/18 06:59 14:59 22:59 Intake Total 1351 480 Output Total 100 Balance 1251 480 Intake: IV 1351 Oral 480 Output: Estimated Blood Loss 100 Results CBC & Chem 7: 10/25/18 11:00 Labs: Abnormal Lab Results - Last 24 Hours (Table) 10/25/18 Range/Units 11:00 Potassium 5.3 H (3.5-5.1) mmol/L
[2018-10-25] MEDS ORDERED: VANCOMYCIN 1,250 MG in SODIUM CHLORIDE 0.9% 250 ML IVPB ONE (23:15)
[2018-10-26] MEDS: diphenhydrAMINE 50 MG/ML 1 ML VIAL IVP PRN ×2 (00:59→06:16)
--- NOTE | 2018-10-26 05:29 | OP ---
OPERATIVE REPORT DATE OF PROCEDURE: 10/25/2018 PREOPERATIVE DIAGNOSIS: Left knee osteoarthrosis. POSTOPERATIVE DIAGNOSIS: Left knee osteoarthrosis. OPERATION: Left total knee arthroplasty. SURGEON: Diego Malik MD PROFESSOR COMPUTER SCIENCE: ARISTIDES Collins. ANESTHESIA: Spinal sedation. ESTIMATED BLOOD LOSS: 100 mL. TOURNIQUET TIME: 50 minutes at 250 mmHg. COMPLICATIONS: None apparent. DRAINS: None. DISPOSITION: Postanesthesia care unit. INDICATIONS: Alexandrea is a 63-year-old female with longstanding history of left knee pain. History and physical examination consistent with advanced left knee osteoarthrosis. She has been through significant nonoperative management up to this point. Further treatment options were discussed and she decided to go forward with the left total knee arthroplasty. Risks of procedure were discussed with her in detail. These risks included, but were not limited to risk of infection, nerve damage, bleeding, pain and risk of deep vein thrombosis which could lead to fatal pulmonary embolism. There is also risk of loosening of the implant which could require revision operation. The patient understands these risks. All of her questions were answered to her satisfaction. Appropriate informed consent was obtained. DESCRIPTION OF THE PROCEDURE: The patient was identified in preop holding area. Surgical site was marked by both the patient and myself. She was given 1 gram of vancomycin IV for prophylactic purposes. She was then transferred to the operative suite. She was placed supine on the operating room table. Spinal anesthetic was then administered and dosed per the anesthesia department without apparent complication. Examination under anesthesia was then performed. The patient was 2 to 3 degrees shy of full extension. She had 100 degrees of flexion. Medial collateral ligament, lateral collateral ligament posterior cruciate ligaments were stable. Tourniquet was then placed high on the left upper thigh well-padded in preparation for surgery. The patient's left lower extremity than prepped draped usual sterile fashion. Standard surgical pause undertaken to ensure that we were operating on the correct site and that appropriate preoperative antibiotics had been given. All staff in the room were in agreement we proceeded. The outlines of the patella were marked with surgical pen. A planned 12 cm vertical incision centered over the patella was marked with surgical pen. Leg was then exsanguinated with an Esmarch dressing. The knee was then flexed and tourniquet inflated. Tourniquet was inflated to 250 mmHg. The total tourniquet time for the procedure was 50 minutes. Incision was then made with a 10 blade scalpel. Dissection carried down sharply overlying fascia. Great care was taken to minimize the skin flaps. The knee was then exposed using standard medial parapatellar approach. A small cuff of quadriceps tendon was then left for suturing. She was in a bit of varus preoperatively. A standard medial release was then made. Superficial medial collateral ligament was dissected off the bone around to the posterior aspect of the proximal tibia. The medial meniscus was then excised as well. The lateral meniscus was also released anteriorly. The leg was then externally rotated. The patella was everted. The knee was flexed. Retractors were then placed to protect the collateral ligaments. I then proceeded to remove the infrapatellar fat pad. This was excised sharply, tangentially with fibers of the patellar tendon. I then proceeded to remove peripheral osteophytes. This was done with a rongeur. I then proceeded with distal femoral resection. She did have near full extension. A planned 9 mm resection was then done. The femoral canal was then entered in the midline of the femur approximately 10 mm anterior to the origin of the posterior cruciate ligament. The shiv was then advanced down the center of the femur and placed intramedullary. Based on preoperative radiographs, the angle between the anatomic and mechanical axis of the femur was approximately 4 to 5 degrees. The valgus angle of this femoral cutting guide was then set at 4 degrees for the left knee. This femoral cutting guide was then advanced over the intramedullary shiv. This was seated firmly against the femur. I then as mentioned planned to take 9 mm off the distal femur. The cutting block was then secured onto the femur with pins. The jig was then removed. The distal femoral cut was made through the slot of the block. The pins were then removed. The distal femoral cutting block was removed. The accuracy of this femoral cuts was checked with 2 flat bars. I then proceed to femoral sizing. The posterior referencing sizing guide was held firmly against the resected distal surface of the femur. Posterior condyles were resting on the posterior plane of the guide. Sizing stylus was then placed onto the anterior femur. Size measured a size 6. I then assessed for femoral rotation. The plan was for 3 degrees of external rotation. Three degrees of external rotation was placed onto the jig. These holes were then marked. I then confirmed the rotation by 3 separate methods. This was done using epicondylar axis as well as Whitesides line and posterior referencing. It was deemed that the external rotation was proper. I then went forward placing the femoral cutting block. This was placed over the previously placed pin holes. The Chung wing was then placed onto the anterior slots to ensure that we would not notch the anterior femur with the anterior femoral cut. I then proceeded with the anterior femoral cut. This was flushed with the anterior cortex of the femur. Posterior cuts were then made followed by the anterior chamfer cut, then the posterior chamfer cut. The cutting block was then removed. Throughout the resection, the collateral ligaments were protected with retractors. I then placed a trial size 6 femur. It was slightly wide mediolateral but the narrow fit flush was nice and it fit flushed with this end of the femur. The drill holes were then made. I then proceeded with the tibial cut. I planned for cruciate retaining knee. The guide was placed and set for varus valgus and for slope. The height was set for approximate 2 mm resection from the medial tibial plateau which was the lower side. alignment shiv resected. The cutting block was then pinned to the proximal tibia. The alignment shiv was removed and the proximal tibia was resected with a reciprocating saw. Again this was done with retractors protecting the collateral ligaments as well as the posterior cruciate ligament. I then proceeded to evaluate the flexion and extension gaps. A 10 mm block was then placed. The flexion and extension gaps were equal. I then proceeded with resection of posterior osteophytes. She had very minimal posterior osteophytes. This was done using a curved osteotome. This resected the posterior osteophytes and posterior capsule stripping was done off the posterior aspect of the femur at this time. The osteophytes were then removed. I then proceeded with resection of patella. The thickness of patella was measured using a caliper. The thickness was 22 mm. The thickness of the anticipated patellar dome was taken into account. Resection was then performed, confirmed to be equal in 4 quadrants using a caliper. Approximately 14 mm of bone remained after the resection. A 29 x 8 standard patellar trial was then placed. The holes drilled. The trial was then placed. I then proceed with sized tibial plate. A size D tibial plate fit very nicely. I then placed the trial femur, the tibial tray and patellar button. A 10 mm trial tibial insert was also placed. The components fit very nicely. She had full extension and flexion. The extension and flexion gaps were equal and stable to both varus and valgus stress. The patella tracked appropriately. The tibial tray rotation was marked with a Bovie. This was externally rotated properly. I then proceeded with tibial preparation. First drilled the femoral holes and removed femoral component. Tibial tray was then set for proper external rotation as well as mediolateral placement onto the tibia. It was then pinned into place. I then proceeded with punching the keel. Then decided proceed with cementing of all of our components. The knee was thoroughly irrigated with sterile saline solution via pulse lavage. The lateral geniculate artery was identified and cauterized. All blood was removed from around the bone of the tibia, femur and patella with pulse lavage. I then proceed with cementing. Two packs of antibiotic bone cement prepared on the back table by the surgical assistant. I then proceeded with cementing the tibia first. The cement was impacted into the keel as well as deeply seated in bone. A second coat of cement was then placed. The tibia was then impacted into place. Excess cement was removed with Cushings and Jokers. I then proceeded with cementing of the femoral component infarct. The femoral component was also cemented using standard technique. Excess cement was removed. A 10 mm trial insert was then placed into the knee. It was brought into full extension with a constant axial load placed until the cement had hardened. The patellar component was then cemented. This was held firmly with a compressive device until the cement had dried. When the cement had dried, the knee was taken out of extension. All excess cement was removed from around the prosthesis. I then trialed the knee with 10 mm insert. Flexion and extension gaps were appropriate. The knee was stable. It came into full extension. I decided to go forward with a 10 mm cross-linked cruciate-retaining tibial insert. Polyethylene was then placed onto the tray and locked into place. The knee was then reduced. The knee was again further irrigated with sterile saline solution with antibiotic added. The tourniquet was then deflated. The total tourniquet time for the procedure was 50 minutes at 250 mmHg. Final components were Abby Persona size 6 narrow cruciate-retaining femoral component, size D tibial tray, a 10 mm medial congruent cruciate-retaining polyethylene insert, and a 29 x 8 patella. I then proceed with closure. Again, the knee was thoroughly irrigated. The quadriceps tendon and the medial retinaculum were reapproximated with #2 Ethibond suture. The extensor mechanism was then closed with a running #2 Quill suture. Subcutaneous tissue was then closed with 2-0 Vicryl interrupted suture. The skin was closed with running 3-0 Quill suture. Dermabond was applied to the incision. Sterile compressive dressing was then applied. All sponge and needle counts were deemed correct prior to closure. The patient tolerated the procedure without apparent complication. She was transferred to the recovery room in stable condition. MMODL / IJN: [id number] /
[2018-10-26 07:12] LABS: Basophils % (A) 0 %; Eosinophils % (A) 0 %; HCT 36.4 % (34.0-46.0); HGB 11.7 gm/dL (11.4-16.0); Lymphocytes # (A) 1.2 k/uL (1.0-4.8); Lymphocytes % (A) 9 %; MCH 27.2 pg (25.0-35.0); MCHC 32.1 g/dL (31.0-37.0); MCV 84.7 fL (80.0-100.0); Mean Platelet Volume 7.8; Monocytes # (A) 0.7 k/uL (0-1.0); Monocytes % (A) 5 %; Neutrophils # (A) 11.8 k/uL (1.3-7.7); Neutrophils % (A) 85 %; Platelet Count 219 k/uL (150-450); RBC 4.29 m/uL (3.80-5.40); RDW 14.7 % (11.5-15.5); WBC 13.9 k/uL (3.8-10.6)
[2018-10-26] MEDS: ASPIRIN 325 MG TAB PO SCH (07:37)
[2018-10-26 07:47] VITALS: BP 135/63; PULSE 76; RESP 16; TEMP 97.9
[2018-10-26] MEDS ORDERED: LOSARTAN 50 MG TAB PO SCH (09:00)
[2018-10-26] MEDS ORDERED: amLODIPine 10 MG TAB PO SCH (09:00)
[2018-10-26] MEDS ORDERED: METOPROLOL SUCCINATE (ER) 25 MG TAB.ER.24H PO SCH (09:00)
[2018-10-26] MEDS ORDERED: MULTIVITAMINS, THERA 1 EACH TAB PO SCH (09:00)
--- NOTE | 2018-10-26 10:58 | P.PN ---
Progress Note - Text Progress Note Date: 10/26/18 Postoperative day 1 status post left total knee arthroplasty under spinal anes thesia, and intrathecal morphine given for postoperative analgesia, patient doing well, there is no anesthesia related complications, Patient had no headache, vital signs stable , Assessment and plan= postop day 1 status left total knee arthroplasty , doing well there is no anesthesia related complication.
--- NOTE | 2018-10-26 11:23 | P.DS ---
Providers Expected date of discharge: 10/26/18 Attending physician: Diego Malik Consults: 10/25/18 12:47 Consult Physician Routine Consulting Provider: Jeffery Mcclain Consult Reason/Comments: post op medical management Do you want consulting provider notified?: Yes Primary care physician: Yunier Wilde - Discharge Diagnosis(es) (1) Osteoarthritis of left knee Patient was admitted to the OR on 10/25/2018 to undergo a left total knee arthroplasty. She had failed conservative measures as an outpatient and desired to proceed with elective surgery after given informed consent.. She underwent the above procedure which she tolerated well without complication. Postoperative hospital course has remained without complication. On day of discharge she is afebrile, vital signs stable, labs within acceptable ranges, tolerating by mouth meds and diet, voiding without difficulty, positive flatus, denies abdominal pain or calf pain, pain is controlled on oral pain medication and has no new complaints. Wound is benign, neurovascular status is intact, calf is soft and nontender, abdomen soft and nontender. Review of systems is negative for numbness, tingling, fever, chills, chest pain, shortness breath, nausea, vomiting, dizziness, headaches, slurred speech or other. Current Visit: Yes Status: Acute Priority: Medium (2) Osteoarthritis of right knee Current Visit: No Status: Acute Priority: Medium Procedures: Left TKA Patient Condition at Discharge: Good Plan - Discharge Summary Discharge Rx Participant: Yes New Discharge Prescriptions: No Action Montelukast [Singulair] 10 mg PO HS Losartan [Cozaar] 100 mg PO QAM Escitalopram [Lexapro] 20 mg PO HS Cholecalciferol [Vitamin D3 (25 Mcg = 1000 Iu)] 1,000 unit PO DAILY Triamcinolone 0.1% Cream [Kenalog 0.1% Cream] 1 applicatio TOPICAL BID Albuterol Inhaler [Ventolin Hfa Inhaler] 1 - 2 puff INHALATION RT-Q6H PRN PRN Reason: ASTHMA amLODIPine [Norvasc] 10 mg PO DAILY Metoprolol Succinate (ER) [Toprol Xl] 25 mg PO DAILY Meloxicam [Mobic] 15 mg PO DAILY Acetaminophen [Tylenol Extra Strength] 1,000 mg PO Q8H PRN PRN Reason: Pain Discharge Medication List Cholecalciferol [Vitamin D3 (25 Mcg = 1000 Iu)] 1,000 unit PO DAILY 07/12/16 [History] Escitalopram [Lexapro] 20 mg PO HS 07/12/16 [History] Losartan [Cozaar] 100 mg PO QAM 07/12/16 [History] Montelukast [Singulair] 10 mg PO HS 07/12/16 [History] Acetaminophen [Tylenol Extra Strength] 1,000 mg PO Q8H PRN 10/20/18 [History] Albuterol Inhaler [Ventolin Hfa Inhaler] 1 - 2 puff INHALATION RT-Q6H PRN 10/20/18 [History] Meloxicam [Mobic] 15 mg PO DAILY 10/20/18 [History] Metoprolol Succinate (ER) [Toprol Xl] 25 mg PO DAILY 10/20/18 [History] Triamcinolone 0.1% Cream [Kenalog 0.1% Cream] 1 applicatio TOPICAL BID 10/20/18 [History] amLODIPine [Norvasc] 10 mg PO DAILY 10/20/18 [History] Follow up Appointment(s)/Referral(s): [facility], [NON-STAFF] - As Needed
--- NOTE | 2018-10-26 18:08 | P.PN ---
Progress Note - Text Progress Note Date: 10/26/18 - Chief Complaint Left knee surgery Interval history: Patient status post left knee surgery. Today-feeling better. Sitting up. Pain controlled. No nausea vomiting. No chest pain no shortness of breath. Did work with therapy. Review of systems: Was done for constitutional, cardiovascular, GI, pulmonary. Musculoskeletal: relevant finding as above Current medications are reviewed in today's date from electronic medical records: Physical examination: VITAL SIGNS: 97.9, 76, 16, 135/63, 96% room air GENERAL: Propped up, comfortable EYES: Pupils equal. Conjunctiva normal. HEENT: External appearance of nose and ears normal, oral cavity grossly normal. NECK: JVD not raised; masses not palpable. HEART: First and second heart sounds are normal; no edema. LUNGS: Respiratory rate normal; clear to auscultation. ABDOMEN: Soft, nontender, liver spleen not palpable, no masses palpable. PSYCH: Alert and oriented x3; mood and affect slightly anxiousl. MUSCULOSKELETAL: Dressing over the left knee Labs: Hemoglobin 11.7 White count 13.9 Assessment: Left total knee arthroplasty -Intermittent asthma -Chronic fibromyalgia -Essential hypertension -Primary osteoarthritis -Chronic urinary stress incontinence -Leukocytosis, reactive from surgery. No clinical evidence of infection. Plan: Patient doing well. Stable. Continue current medication treatment plan. Follow with his PCP. Thank you Dr. Malik
== END 2018-10-26 15:15 | disposition home health service (06) ==
LOC: OR 10:27 → 4SSUR 14:29 → OR 10-26 15:15
PROVIDERS: ATTEND Orthopaedic Surgery Sports Medicine
DX: M17.12 Unilateral primary osteoarthritis, left knee (principal); J45.20 Mild intermittent asthma, uncomplicated; M79.7 Fibromyalgia; I10 Essential (primary) hypertension; F41.9 Anxiety disorder, unspecified; G40.909 Epilepsy, unspecified, not intractable, without status epilepticus; N39.3 Stress incontinence (female) (male); L30.9 Dermatitis, unspecified; Z90.49 Acquired absence of other specified parts of digestive tract; Z98.51 Tubal ligation status; Z96.651 Presence of right artificial knee joint; Z79.899 Other long term (current) drug therapy; Z79.1 Long term (current) use of non-steroidal anti-inflammatories (NSAID)
CPT/HCPCS: 27447; 94760; 97161; 84132; 85025; 88300; 73560; C1776; C1713; J2250; J0171; J3370; J1200 ×2; J2300; J2405; J0690; J2274; J3010; J1885; J1100; J2795; J0735